=== PATIENT | female | born 1980 | race Caucasian/White ===

== ENCOUNTER 2018-09-14 02:41 | Emergency (ER) | payer MEDICAID ==
[2018-09-14] MEDS ORDERED: ONDANSETRON 4 MG/2 ML VIAL IVP ONE ×2 (03:14→04:14)
[2018-09-14] MEDS ORDERED: KETOROLAC 15 MG/1 ML SDV IVP ONE (03:14)
[2018-09-14] MEDS ORDERED: IOPAMIDOL (ISOVUE-300) 100 ML BTL ONE (03:21)
[2018-09-14] MEDS ORDERED: NS 1,000 ML IV ONE (03:23)
--- NOTE | 2018-09-14 03:30 | EDPHY ---
H & P Stated Complaint: c/o intermittent abd pain since monday, vomiting x 5 Time Seen by Provider: 09/14/18 02:57 HPI/ROS: CC: Right lower quadrant pain x one and half days HPI: This 37-year-old female presents to the emergency department today with her complaining of right lower quadrant pain that started one and half days ago. She has had multiple episodes of vomiting and her last meal was soup last evening for dinner. The pain is dull and located in the right lower quadrant without radiation. It was 5/10 at onset and is currently 8/10. Lying flat makes the pain worse and she feels better when she is "crunched up." Hot bath also makes the pain better. She took 2 activated charcoal tablets at 10: 00 p.m. last evening in case it was food poisoning. She denies fever, chills, dysuria, constipation, or diarrhea. She also denies vaginal discharge. She has not been ill otherwise. No prior episodes of this sort. Her last menstrual period was 3 weeks ago. She has an IUD. Her last Pap smear was within a year and was negative. She has no history of STIs. She had a UTI that progressed to pyelonephritis quite a while back. She has had no abdominal surgeries. She has never been . No recent ill contacts. REVIEW OF SYSTEMS: Constitutional: No fever, no chills. Eyes: No discharge. ENT: No sore throat. Respiratory: No cough, no shortness of breath. Cardiac: No chest pain, no palpitations. Gastrointestinal: See HPI. Genitourinary: No hematuria. Musculoskeletal: No back pain. Skin: No rashes. Neurological: No headache. Source: Patient Exam Limitations: No limitations - Personal History LMP (Females 10-55): 15-21 Days Ago Current Tetanus Diphtheria and Acellular Pertussis (TDAP): Unsure - Medical/Surgical History PMH: PMH: pyelonephritis PSH: denied FH: sisters have PCOS NKDA Meds: none PCP: Dr. Jv Oakley Hx Asthma: No Hx Chronic Respiratory Disease: No Hx Diabetes: No Hx Cardiac Disease: No Hx Renal Disease: No Hx Cirrhosis: No Hx Alcoholism: No Hx HIV/AIDS: No Hx Splenectomy or Spleen Trauma: No Other PMH: denies - Social History Smoking Status: Never smoked Additional Social History: . No children. No tobacco products. Occasional ETOH. No marijuana products. - Physical Exam Exam: General Appearance: Alert, mod distress. Eyes: Pupils equal and round no pallor or injection. ENT, Mouth: Mucous membranes are moist. Respiratory: There are no retractions, lungs are clear to auscultation. Cardiovascular: Regular rate and rhythm. Gastrointestinal: Abdomen is soft, tender to palpation in RLQ. No rebound, guarding, or rigidity. No masses. Normal bowel sounds. Neurological: Awake and alert, sensory and motor exams grossly normal. Skin: Warm and dry, no rashes. Musculoskeletal: Neck is supple nontender. Extremities are symmetrical, full range of motion. Psychiatric: Patient is oriented X 3, there is no agitation. DIFFERENTIAL DIAGNOSIS: After history and physical exam differential diagnosis was considered for but not limited to and in no particular order: [Appendicitis , ovarian cyst, ovarian torsion, biliary colic, UTI, STI, colitis, bowel obstruction.] Constitutional: Initial Vital Signs Temperature (C) 97.9 F 09/14/18 02:49 Heart Rate 65 09/14/18 02:49 Respiratory Rate 16 09/14/18 02:49 Blood Pressure 126/82 H 09/14/18 02:49 O2 Sat (%) 97 09/14/18 02:49 O2 Delivery Mode Room Air Allergies/Adverse Reactions: No Known Allergies Allergy (Unverified 09/14/18 02:49) Home Medications: Medication Instructions Recorded NK [No Known Home Meds] 09/14/18 Medical Decision Making ED Course/Re-evaluation: The patient was seen and examined. Vital signs reviewed. Her urine was significant for 2+ ketones. Negative for nitrates and leukocyte esterase. She is not . CBC showed a normal white blood cell count with a slight elevation in neutrophil count. Her comprehensive metabolic panel was significant for a bicarb of 18. CT abd/pelvis showed a normal appendix. A 2 cm right ovarian involuting cyst was identified. There is some free fluid surrounding this and some free fluid in the cul-de-sac. Her IUD is in good position. There is an incidental finding of a right hepatic lobe cyst. (See final dictated report when available) Patient was reexamined and her pain was still a 6/10 despite Toradol 15mg IVP. She also received Zofran 4mg IVP. We discussed ovarian cysts and ruptured ovarian cysts as well as ovarian torsion. She feels that with her continued pain she would like to have an ultrasound to rule out torsion. The patient received Fentanyl 25mcg and another 4mg of Zofran while awaiting US , and requested another dose of Fentanyl 25mcg while awaiting the result. US shows no torsion. (See final dictated report when available). 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 - Data Points Laboratory Results: 09/14/18 03:01 POC Sodium 139 mEq/L mEq/L (135-145) POC Potassium 3.3 mEq/L mEq/L (3.3-5.0) POC Chloride 102.0 mEq/L mEq/L (97-110) POC Total CO2 18 mEq/L L mEq/L (22-31) POC BUN 8 mg/dL mg/dL (7-23) POC Creatinine 0.8 mg/dL mg/dL (0.6-1.0) POC Glucose 138 mg/dL H mg/dL (70-100) POC Calcium 9.3 mg/dL mg/dL (8.5-10.4) POC Total Bilirubin 0.8 mg/dL mg/dL (0.1-1.4) POC AST 25 IU/L IU/L (14-46) POC ALT 21 IU/L IU/L (9-52) POC Alk Phosphatase 49 IU/L IU/L (38-126) POC Total Protein 7.3 g/dL g/dL (6.3-8.2) POC Albumin 4.3 g/dL g/dL (3.5-5.0) Medications Given: Discontinued Medications Fentanyl (Sublimaze) 25 mcg IVP EDNOW ONE Stop: 09/14/18 04:13 Last Admin: 09/14/18 04:18 Dose: 25 mcg Fentanyl (Sublimaze) 25 mcg IVP EDNOW ONE Stop: 09/14/18 05:47 Last Admin: 09/14/18 05:51 Dose: 25 mcg Sodium Chloride (Ns) 1,000 mls @ 0 mls/hr IV ONCE ONE; Wide Open PRN Reason: Protocol Stop: 09/14/18 03:24 Last Admin: 09/14/18 03:00 Dose: 1,000 mls Ketorolac Tromethamine (Toradol) 15 mg IVP EDNOW ONE Stop: 09/14/18 03:15 Last Admin: 09/14/18 03:18 Dose: 15 mg Ondansetron HCl (Zofran) 4 mg IVP EDNOW ONE Stop: 09/14/18 03:15 Last Admin: 09/14/18 03:19 Dose: 4 mg Ondansetron HCl (Zofran) 4 mg IVP EDNOW ONE Stop: 09/14/18 04:15 Last Admin: 09/14/18 04:17 Dose: 4 mg Point of Care Test Results: CBC CBC Collection Date 09/14/18 CBC Collection Time 03:05 WBC 9.2 RBC 4.28 HGB 13.7 HCT 38.7 PLT 240 Neut # 7.1 Neut 77.6 LYMPH # 1.7 LYMPH 18.3 Other WBC # 0.4 Other WBC 4.1 MCV 90.4 Chemistry 09/14/18 03:01 POC Sodium 139 mEq/L mEq/L (135-145) POC Potassium 3.3 mEq/L mEq/L (3.3-5.0) POC Chloride 102.0 mEq/L mEq/L (97-110) POC Total CO2 18 mEq/L L mEq/L (22-31) POC BUN 8 mg/dL mg/dL (7-23) POC Creatinine 0.8 mg/dL mg/dL (0.6-1.0) POC Glucose 138 mg/dL H mg/dL (70-100) POC Calcium 9.3 mg/dL mg/dL (8.5-10.4) POC Total Bilirubin 0.8 mg/dL mg/dL (0.1-1.4) POC AST 25 IU/L IU/L (14-46) POC ALT 21 IU/L IU/L (9-52) POC Alk Phosphatase 49 IU/L IU/L (38-126) POC Total Protein 7.3 g/dL g/dL (6.3-8.2) POC Albumin 4.3 g/dL g/dL (3.5-5.0) Urine Collection Date 09/14/18 Collection Date 09/14/18 Collection Time 02:58 Collection Time 03:00 HCG Results Negative HCG Results Negative Urine Dip Collection Date 09/14/18 Collection Time 03:00 Specific Deport (1.002-1.030) 1.020 PH (5.0-7.5) 7.0 Leukocytes (Negative) Negative Nitrites (Negative) Negative Protein (Negative) Negative Glucose (Negative) Negative Ketones (Negative) 2+ Urobilnogen (0.2-1.0 EU) 0.2 Bilirubin (Negative) Negative Blood (Negative) Negative Departure - Departure Disposition: Home, Routine, Self-Care Clinical Impression: Right ovarian cyst Instructions: Ovarian Cyst (ED), Ruptured Ovarian Cyst (ED) Additional Instructions: Follow up with your freight car builder in the next 1-2 weeks. Take ibuprofen or naprosyn as directed for pain. You can also add Tylenol as directed for additional pain control. Return to the ER if symptoms change or worsen as discussed. Referrals: Suad Lazcano PA [[facility]] - As per Instructions
[2018-09-14] MEDS ORDERED: fentaNYL 100 MCG/2 ML INJ IVP ONE ×2 (04:12→05:46)
[2018-09-14 06:03] VITALS: BP 107/60
[2018-09-14] MEDS ORDERED: HYDROCOD/APAP 5/325 PREPACK#6 BTL TAKEHOME ONE (06:09)
== END 2018-09-14 06:15 | disposition home or self-care (01) ==
LOC: CED 02:41
DX: N83.291 Other ovarian cyst, right side (principal); K76.89 Other specified diseases of liver; Z97.5 Presence of (intrauterine) contraceptive device
CPT/HCPCS: 74177-PO; 76856-PO; 80053-PO; 96374; J1885; J2405; J3010; Q9967